=== PATIENT | female | born 1975 | race Caucasian/White ===

== ENCOUNTER 2020-07-15 16:16 | Emergency (ER) | payer OTHER, SELFPAY ==
--- NOTE | ~2020-07-15 | XR_ITS ---
XR ankle LT min 3V, XR foot LT min 3V 07/15/2020 18:07 (accession [id number]), 07/15/2020 18:08 (accession [id number]) Indication: Left foot and ankle pain after fall. Procedure: 4 views left ankle and 4 views left foot Comparison: 08/04/2016 Findings: There is an avulsion fracture distal tip of the fibula with multiple small adjacent fragmen ts. Moderate lateral soft tissue swelling. Talar dome is normal. Ankle mortise intact. There is a deg enerative calcaneal enthesophyte at the plantar surface. Lisfranc joint is intact. No other fracture is identified. Impression: 1: Acute avulsion fracture distal tip of the fibula with adjacent soft tissue swelling. Reviewed, dictated and finalized at location A. Impression: 1: Acute avulsion fracture distal tip of the fibula with adjacent soft tissue s welling. Impression: 1: Acute avulsion fracture distal tip of the fibula with adjacent soft tissue s welling.
[2020-07-15 16:43] VITALS: BP 143/87; PULSE 102; RESP 18; TEMP 36.7; O2SAT 100
--- NOTE | 2020-07-15 17:29 | ED.LOWEXIN ---
HPI - Extremity Injury (Lower) General Chief Complaint: Extremity Injury, Lower Stated Complaint: L ANKLE INJURY Time Seen by Provider: 07/15/20 16:51 Source: patient Mode of arrival: wheelchair Limitations: no limitations History of Present Illness HPI Narrative: This is a 45-year-old female that presents the emergency department for left ankle injury yesterday. Reports she was walking down a hill and slipped and twisted the left ankle. Reports since she has had pain and swelling in the ankle and foot. She has been taking [id number] medicines with little relief. Denies hitting her head, other injuries, decreased range of motion or numbness. Related Data Allergies Allergy/AdvReac Type Severity Reaction Status Date / Time Iodinated Contrast Media Allergy Unknown Verified 03/19/14 13:25 iodine Allergy Unknown Verified 07/02/15 15:34 soy Allergy Unknown Verified 07/02/15 15:26 Sulfa (Sulfonamide Allergy Unknown Verified 07/02/15 15:25 Antibiotics) Contrast Media Allergy Unknown HIVES Uncoded 09/20/19 09:57 Review of Systems Review of Systems: Narrative: CONSTITUTIONAL: Denies fever MUSCULOSKELETAL: Reports joint pain, and myalgia. NEUROLOGIC: Denies numbness All systems reviewed & are unremarkable except as noted in HPI and below PMFSH Past Medical History Medical History (Updated 07/15/20 @ 19:01 by Loretta Jimenez PA-C) History of hyperlipidemia History of thyroid cancer Family History Family History (Updated 06/19/16 @ 23:21 by DOCTOR UNKNOWN) Father Hypertension Mother Hypertension Patient's mother is in good health Family history of diabetes mellitus in first degree relative Family history of kidney disease Family history of type 2 diabetes mellitus Sibling Patient's brother is in good health Grandparent Family history of malignant neoplasm of breast Family history of type 2 diabetes mellitus Other Family history of malignant neoplasm Family history of osteoarthritis Family history of thyroid disease Social History Social History Smoking status: Never smoker Second hand tobacco smoke exposure: Yes Alcohol intake: current Gender identity (if verbalized by the patient): Female Exam Narrative: Exam Narrative: GENERAL: Well-appearing, well-nourished, and in no acute distress. HEAD: Normocephalic, atraumatic. EYES: EOMI. EXTREMITIES: Normal range of motion. Mild edema to the left ankle and dorsal surface of the foot. Normal DP pulses. Normal sensation SKIN: Warm, dry, no rash. NEURO: No focal deficits. Alert and oriented x3. PSYCH: Normal mood and affect Course Vital Signs Vital signs: Vital Signs Temperature 98.0 F 07/15/20 16:43 Pulse Rate 102 H 07/15/20 16:43 Respiratory Rate 18 07/15/20 16:43 Blood Pressure 143/87 H 07/15/20 16:43 Pulse Oximetry 100 07/15/20 16:43 Temperature 98.0 F 07/15/20 16:43 Pulse Rate 102 H 07/15/20 16:43 Respiratory Rate 18 07/15/20 16:43 Blood Pressure 143/87 H 07/15/20 16:43 Pulse Oximetry 100 07/15/20 16:43 Procedures Orthopedic Splinting/Casting Injury #1: Splinting/Casting Date: 07/15/20 Splinting/Casting Time: 19:00 Side: left Lower Extremity Injury Location: ankle OCL: posterior Pre-Procedure Neuro Vascular Exam: normal Post-Procedure Neuro Vascular Exam: normal Other Orthopedic Equipment: other (patient reports she has crutches at home already) MDM - Extremity Injury (Lower) MDM Narrative Medical decision making narrative: Patient presents to the emergency department for left ankle pain after an injury yesterday. Left ankle/foot x-rays show acute avulsion fracture at the distal tip of the fibula. Patient placed in a splint and will be given follow-up with orthopedics. Patient is stable and felt appropriate for further outpatient evaluation. She was given warnings to return to the ER Imaging Data Radiologist's impression:
[2020-07-15 19:27] VITALS: BP 118/75; PULSE 76; RESP 16; O2SAT 100
== END 2020-07-15 19:28 | disposition home or self-care (01) ==
PROVIDERS: Emergency Provider Emergency Medicine; PCP Family Medicine
DX: S82.832A Other fracture of upper and lower end of left fibula, initial encounter for closed fracture (principal); E78.5 Hyperlipidemia, unspecified; Z85.850 Personal history of malignant neoplasm of thyroid; X50.9XXA Other and unspecified overexertion or strenuous movements or postures, initial encounter
CPT/HCPCS: 29515; 73610; 73630; 99284; A9270

== ENCOUNTER 2022-09-20 06:55 | Emergency (ER) | payer OTHER, SELFPAY ==
--- NOTE | ~2022-09-20 | XR_ITS ---
XR ankle RT min 3V 09/20/2022 07:40 Indication: Right ankle pain Procedure: 4 views right ankle Comparison: 09/20/2019 Findings: There is an avulsion fracture distal tip of the fibula. Moderate lateral soft tissue swelli ng. Ankle mortise intact. Talar dome within normal limits. Small degenerative calcaneal enthesophyte. Impression: 1: Acute avulsion fracture inferior tip of the fibula. Reviewed, dictated and finalized at location A. Impression: 1: Acute avulsion fracture inferior tip of the fibula.
[2022-09-20 07:17] VITALS: BP 133/82; PULSE 95; RESP 18; TEMP 36.2; O2SAT 99
[2022-09-20 09:24] VITALS: RESP 16
--- NOTE | 2022-09-20 09:28 | ED.LOWEXIN ---
HPI - Extremity Injury (Lower) General Chief Complaint: Extremity Injury, Lower Stated Complaint: R ankle injury Time Seen by Provider: 09/20/22 08:56 History of Present Illness HPI Narrative: 47-year-old female presents emergency room for evaluation of right ankle pain. 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 Patient states that she was ambulatory following the injury. Reports going home following the injury and elevating and icing her ankle. States this morning the pain is continued and is more painful to ambulate. Related Data Allergies Allergy/AdvReac Type Severity Reaction Status Date / Time Iodinated Contrast Media Allergy Unknown Hives Verified 09/20/22 09:02 iodine Allergy Unknown Hives Verified 09/20/22 09:02 soy Allergy Unknown Hives Verified 09/20/22 09:02 Sulfa (Sulfonamide Allergy Unknown Hives Verified 09/20/22 09:02 Antibiotics) Contrast Media Allergy Unknown HIVES Uncoded 09/20/19 09:57 Review of Systems Review of Systems: CONSTITUTIONAL: Denies fever, chills, or sweats. EYES: Denies visual changes, redness, or discharge. ENT: Denies rhinorrhea, congestion, sore throat, or otalgia. CARDIOVASCULAR: Denies chest pain, palpitations, or edema. RESPIRATORY: Denies cough or dyspnea. GASTROINTESTINAL: Denies abdominal pain, nausea, vomiting, or diarrhea. GENITOURINARY: Denies dysuria or hematuria. SKIN: Denies rash or itching. MUSCULOSKELETAL: Reports right ankle pain NEUROLOGIC: Denies headache, numbness, dizziness, or weakness. PSYCHIATRIC: Denies anxiety or depression. [facility] Past Medical History Medical History History of hyperlipidemia History of thyroid cancer Family History Family History Father Hypertension Mother Hypertension Patient's mother is in good health Family history of diabetes mellitus in first degree relative Family history of kidney disease Family history of type 2 diabetes mellitus Sibling Patient's brother is in good health Grandparent Family history of malignant neoplasm of breast Family history of type 2 diabetes mellitus Other Family history of malignant neoplasm Family history of osteoarthritis Family history of thyroid disease Social History Social History Smoking status: Never smoker Second hand tobacco smoke exposure: Yes Alcohol intake: current Gender identity (if verbalized by the patient): Female Exam Narrative: GENERAL: Well-appearing, well-nourished, no physical limitations, and in no acute distress. HEAD: Normocephalic, atraumatic. EYES: Conjunctivae normal, PERRLA and EOMI. CHEST: Clear to auscultation. No respiratory distress. No wheezes rales or rhonchi. HEART: Regular rate and rhythm. No murmur heard. Normal peripheral pulses. EXTREMITIES: RT ankle: +TTP with STS to lateral malleolus, LROM d/t pain, no obvious bony abnormality, neurovascular is intact distally SKIN: Warm, dry, no rash. No noted wounds NEURO: No focal deficits. Alert and oriented x3. MAEW. CN's II-XI intact bilaterally, normal gait PSYCH: Cooperative. Normal mood and affect. Course Vital Signs Vital signs: Vital Signs Temperature 36.2 C L 09/20/22 07:17 Pulse Rate 95 09/20/22 07:17 Respiratory Rate 18 09/20/22 07:17 Blood Pressure 133/82 09/20/22 07:17 Pulse Oximetry 99 09/20/22 07:17 Oxygen Delivery Room Air 09/20/22 07:17 Temperature 36.2 C L 09/20/22 07:17 Pulse Rate 95 09/20/22 07:17 Respiratory Rate 16 09/20/22 09:24 Blood Pressure 133/82 09/20/22 07:17 Pulse Oximetry 99 09/20/22 07:17 Oxygen Delivery Room Air 09/20/22 07:17 MDM - Extremity Injury (Lower) Imaging Data Radiologist's impression: Impressions Ankle X-Ray
== END 2022-09-20 09:25 | disposition home or self-care (01) ==
PROVIDERS: Emergency Provider Nurse Practitioner Family
DX: S82.831A Other fracture of upper and lower end of right fibula, initial encounter for closed fracture (principal); E78.5 Hyperlipidemia, unspecified; Z85.850 Personal history of malignant neoplasm of thyroid; X50.9XXA Other and unspecified overexertion or strenuous movements or postures, initial encounter
CPT/HCPCS: 29515; 73610; 99284